=== PATIENT | female | born 1955 | race Caucasian/White ===

== ENCOUNTER 2023-05-26 20:20 | Emergency (ER) | payer MEDICARE, OTHER, SELFPAY ==
[2023-05-26 20:21] VITALS: BP 176/102
[2023-05-26 20:48] LABS: % Basophils 0.3 % (0-2); % Eosinophils 3.2 % (0-6); % Immature Granulocytes 0.4 % (0-0.5); % Lymphocytes 18.8 % (20.5-51.1); % Neutrophils 68.3 % (42.2-75.2); Absolute Eosinophils 0.3 10^3/uL (0-0.7); Absolute Lymphocytes 1.9 10^3/uL (1.2-3.4); Absolute Monocytes 0.9 10^3/uL (0.1-0.6); Absolute Neutrophils 6.8 10^3/uL (1.4-6.5); Hematocrit 39.8 % (37.0-47.0); Hemoglobin 13.7 g/dL (12.0-16.0); Mean Corp Hgb Conc. 34.4 g/dL (33.0-37.0); Mean Corpuscular Hgb 30.2 pg (27.0-31.0); Mean Corpuscular Volume 87.7 fL (81.0-99.0); Mean Platelet Volume 8.4 fL (7.4-10.4); Nucleated Red Blood Cells % 0 %; Platelet Count 270 10^3/uL (130-400); Red Blood Cell Count 4.54 10^6/uL (4.20-5.40); Red Cell Dist. Width 13.9 % (11.5-14.5)
[2023-05-26 20:48] LABS: Urine Albumin Negative (Neg - Trace); Urine Bilirubin Negative (Negative); Urine Character Slightly Cloudy (Clear); Urine Color Yellow; Urine Glucose Negative (Negative); Urine Ketone Negative (Negative); Urine Leukocyte 2+ (Negative); Urine Nitrite Negative (Negative); Urine Occult Blood Negative (Negative); Urine Urobilinogen Negative (Neg - 1+)
[2023-05-26 20:57] LABS: Urine Red Blood Cell 0-2 /HPF (0-2)
[2023-05-26 20:58] VITALS: BMI 35.9
[2023-05-26 21:01] LABS: ALT (SGPT) 21 U/L (0-35); AST (SGOT) 31 U/L (14-36); Albumin 4.2 g/dl (3.5-5.0); Alkaline Phosphatase 110 U/L (38-126); Blood Urea Nitrogen 17 mg/dl (7-17); Calcium 9.1 mg/dl (8.4-10.2); Carbon Dioxide 29 mmol/L (22-30); Chloride 102 mmol/L (98-107); Estimated Creatinine Clearance 86 ml/min; Glucose 107 mg/dl (70-99); Potassium 4.1 mmol/L (3.5-5.1); Sodium 136 mmol/L (135-145); Total Bilirubin 1.2 mg/dl (0.2-1.3); Total Protein 7.3 g/dl (6.3-8.2); eGFR > 60.00
[2023-05-26] MEDS: MAALOX 40 PO (21:21)
[2023-05-26 21:22] VITALS: BP 146/95
[2023-05-26 21:35] LABS: Lipase 67 U/L (23-300)
[2023-05-26 22:00] VITALS: BP 133/79
--- NOTE | 2023-05-26 22:50 | ED.GENMED ---
History of Present Illness
General
Chief Complaint: Abdominal Pain
Source: patient
Exam Limitations: none
Time Seen by Provider: 05/26/23 20:52
Nursing documentation reviewed up to this point in time: agreed with
Travel History
Have you had any contact with someone who has COVID-19?: No
Do you have any symptoms of coronavirus? Fever > 100 degrees, chills, cough, shortness of breath, sore throat, loss of taste or smell, muscle aches, or headache?: No
History of Present Illness
History of Present Illness:
Patient to ED wtih sudden onset of abdominal pain. [place], here [place] family. States she was at a family alliance party, ate half a sandwich and then developed pain. Reports pain was on right side and then migrated to epigastric
region. No n/v/d. No prior history of same. Brought to ED by family for eval. Denies any chest pain/pressure. No SOB but reports pain is worse with deep breathing.
Past History
Past History
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
ED Past Surgical History: Cardiac (Ablation), Cholecystectomy and Orthopedic
Social History
Tobacco: Non-smoker
Alcohol: Occasional
Drug: None
Living: alone
Employment: Employed
Review of Systems
Review of Systems
Allergies reviewed?: Yes
All Other Systems: ROS reviewed and negative except as documented in HPI and ROS
Constitutional: Reports no symptoms
EENT: Reports no symptoms
Respiratory: Reports no symptoms
Cardiac: Reports no symptoms
ABD/GI: Reports abdominal pain
: Reports no symptoms
Musculoskeletal: Reports no symptoms
Skin: Reports no symptoms
Neurological: Reports no symptoms
Psychiatric: Reports no symptoms
Phy Exam
General Physical Exam
General Presentation: well appearing and mild distress
General age: appears stated age
General Skin: warm and dry
General Habitus: normal
General Mental: alert
General Hydration: appears well hydrated
Cardiovascular Exam
Cardiovascular Exam: regular rate/rhythm
Pulmonary Exam
Pulmonary Exam: lungs clear and no respiratory distress
Gastrointestinal Exam
Gastrointestinal Exam: normal bowel sounds, soft, no organomegaly, no pulsatile mass, non distended and no cva tenderness
Musculoskeletal Exam
Musculoskeletal Exam: full ROM and neuro vasc intact
Skin Exam
Skin Exam: normal color, warm/dry and no rash
Psychiatric Exam
Psychiatric Exam: normal mood/affect
Course
Orders/Labs/Results
Orders:
Orders
05/26/23 20:29
CMP [Comprehensive Metabolic Panel] Urgent
Complete Blood Count/With Diff Urgent
Lipase Urgent
Comment: ADD ON
05/26/23 20:34
Urinalysis Urgent
Date Specimen was Collected: 05/26/23
Time Specimen was Collected: 20:25
Urine Microscopic Urgent
Date Specimen was Collected: 05/26/23
Time Specimen was Collected: 20:25
05/26/23 21:10
Mag Hydrox/Al Hydrox/Simeth [Maalox] 30 ml Phenobarb/Hyoscy/Atropine/Scop [] 10 ml PO NOW
05/26/23 21:13
Add On- LAB Urgent
Tests Added?: lipase
05/26/23 21:20
Mag Hydrox/Al Hydrox/Simeth [Maalox] 30 ml .ROUTE .STK-MED ONE
Phenobarb/Hyoscy/Atropine/Scop [] 10 ml .ROUTE .STK-MED ONE
Abnormal Lab Results
05/26/23 05/26/23
20:29 20:34
Absolute Neuts (auto) 6.8 H 10^3/uL
(1.4-6.5)
Absolute Monos (auto) 0.9 H 10^3/uL
(0.1-0.6)
Lymphocytes % 18.8 L %
(20.5-51.1)
Glucose 107 H mg/dl
(70-99)
Ur Leukocyte Esterase 2+ A
(Negative)
05/26/23 20:29
05/26/23 20:29
Vital Signs
Initial and Last Documented VS:
Initial Vital Signs
Temp Pulse Resp BP Pulse Ox
98.1 F 98 22 176/102 98
05/26/23 20:21 05/26/23 20:21 05/26/23 20:21 05/26/23 20:21 05/26/23 20:21
Last Documented Vital Signs
Temp Pulse Resp BP Pulse Ox
98.1 F 98 22 176/102 95
05/26/23 20:21 05/26/23 20:21 05/26/23 20:21 05/26/23 20:21 05/26/23 21:19
*Critical Care Note
Total Time (30-74mins, 75-104mins- exclusive of procedures): Not Applicable
Update Note
Update Note:
Given daljit king in dept. SHe states she was able to pass gas and now feels much better. Pain has resolved. She is discharged home. Given instructions on s/s to return to ED and she is agreeable to plan
ED Attending Note
-
Portions of this chart may have been created with voice recognition software.� Occasional wrong word or��sound alike� substitutions may have occurred due to the inherent limitations of voice recognition software.
Discharge Plan
Departure
Patient Disposition: Home (Routine Discharge)
Date of Disposition: 05/26/23
Time of Disposition: 22:39
Patient with high blood pressure during this ER visit?: No
Condition: Good
Covid-19: Not Applicable
Discharge Problem:
Abdominal pain
Instructions: Gas and bloating
Prescriptions:
No Action
levothyroxine 100 MCG tablet
200 mcg PO DAILY
Patient Comments:
unsure of dose
cyanocobalamin (vitamin B-12) 1,000 MCG/ML solution
1,000 mcg IM MONTHLY
cholecalciferol (vitamin D3) 1,000 UNITS tablet
1,000 units PO DAILY
levothyroxine 50 mcg Tablet
50 mcg PO DAILY
montelukast [Singulair] 10 mg Tablet
10 mg PO DAILY
olmesartan 20 mg Tablet
20 mg PO DAILY
escitalopram oxalate [Lexapro] 10 mg Tablet
10 mg PO DAILY
trospium 60 mg Capsule,Extended Release 24hr
60 mg PO DAILY
Rx Instructions:
must be taken on empty stomach at least 1 hour before a meal/food with water only
Referrals:
UNKNOWN - PT DOES,NOT KNOW [Family Provider] -
Activity Restrictions/Additional Instructions:
Return to the emergency department immediately for any changes in/worsening of your symptoms.
Interventions
Interventions:
*Risk Screen - Suicide Last Done: 05/26/23 20:21
*General Assessment Last Done: 05/26/23 21:00
*Neglect/Abuse Screening Last Done: 05/26/23 20:21
*ED COVID-19 Vaccine History Last Done: 05/26/23 21:00
HF-Uqrlwn-Jihekhpyfb Assessment Last Done: 05/26/23 21:00
== END 2023-05-26 23:03 | disposition home or self-care (01) ==
LOC: EMR 20:20
PROVIDERS: EMERGENCY PHYSICIAN Emergency Medicine
DX: R10.9 Unspecified abdominal pain (principal)
CPT/HCPCS: 99283; 80053; 81003; 81015; 83690; 85025